=== PATIENT | female | born 1960 | race Caucasian/White ===

== ENCOUNTER 2023-06-23 23:42 | Emergency (ER) | payer SELFPAY ==
[~2023-06-23] VITALS: Ht 154.9 cm; Wt 65.0 kg
[2023-06-23 23:46] VITALS: BP 140/77; PULSE 75; RESP 16; TEMP 97.7; O2SAT 94
== END 2023-06-24 05:46 | disposition left against medical advice (07) ==
LOC: ER 23:42
DX: M54.50 Low back pain, unspecified (principal); Z53.21 Procedure and treatment not carried out due to patient leaving prior to being seen by health care provider
CPT/HCPCS: 99281